=== PATIENT | male | born 1935 | race Caucasian/White ===

== ENCOUNTER 2019-01-11 09:10 | Day surgery (SDC) | payer MEDICARE, BC ==
[2019-01-10 11:45] VITALS: BMI 35.5
[2019-01-11] MEDS ORDERED: Dexamethasone 20 MG/5 ML VIAL ONE (10:23)
[2019-01-11] MEDS ORDERED: PROPOFOL 200 MG/20 ML VIAL ONE (10:23)
[2019-01-11] MEDS ORDERED: Succinylcholine Chloride 20 MG/ML 10 ml SYRINGE FS ONE (10:23)
[2019-01-11] MEDS ORDERED: Ondansetron PF 4 MG/2 ML Vial ONE (10:23)
[2019-01-11 10:29] LABS: #Eosinphils 0.4 thou/uL (0.0-0.7); #Lymphocytes 2.4 thou/uL (1.20-3.40); #Monocytes 0.7 thou/uL (0.11-0.59); #Neutrophils 2.1 thou/uL (1.40-6.50); %Basophils 0.8 % (0.0-1.0); %Eosinophils 7.6 % (0.0-10.0); %Lymphocytes 42.6 % (21.0-51.0); %Monocytes 12.2 % (0.0-10.0); %Neutrophils 36.7 % (42.0-75.0); Hemoglobin 12.8 g/dL (14.0-18.0); Mean Corpuscular HGB CONC 33.6 g/dL (32.0-36.0); Mean Corpuscular Hemoglobin 32.6 pg (27.0-31.0); Mean Corpuscular Volume 96.9 fL (78.0-98.0); Mean Platelet Volume 6.4 fL (7.4-10.4); Platelet Count 285 thou/uL (130-400); RBC Distribution Width 12.8 % (11.5-14.5); Red Blood Cell (RBC) Count 3.94 mill/uL (4.70-6.10); White Blood Cell (WBC) Count 5.7 thou/uL (4.8-10.8)
[2019-01-11 10:53] LABS: Anion Gap 12 mmol/L (10-20); BUN (Urea Nitrogen) 19 mg/dL (8.4-25.7); Calc. Creatinine Clearance 76 mL/min (70-130); Calcium 9.2 mg/dL (7.8-10.44); Carbon Dioxide 25 mmol/L (23-31); Chloride 104 mmol/L (98-107); Estimated GFR-MDRD 70; Glucose 86 mg/dL (83-110); Potassium 3.9 mmol/L (3.5-5.1); Sodium 137 mmol/L (136-145)
[2019-01-11] MEDS ORDERED: EPINEPHrine 1 MG/ML AMP ONE (11:00)
[2019-01-11] MEDS ORDERED: Fentanyl 100 MCG/2 ML VIAL ONE (11:03)
--- NOTE | 2019-01-11 11:05 | CT ---
CT NECK SOFT TISSUES WITH CONTRAST: DATE: 01/11/2019. HISTORY: An 83-year-old male with: K14.8, tongue lesion. M54.2, neck pain. H92.09, ear pain. COMPARISON: None. FINDINGS: There is a moderately enhancing soft tissue density mass centered in the left posterior inferior root of tongue. It envelopes and encompasses the entire left side of base of tongue (lingual tonsil), cr osses the midline raphe to the right a distance of approximately 0.5 to 0.8 cm, and envelopes the po sterior aspects of the left geniohyoid and genioglossus muscles. There are several pathologic, necrotic left level II lymph nodes, both retrojugular and antejugular. The largest is a multiseptated cystic retrojugular level II lymph node that measures approximately 2 x 1.5 x 2 cm. No involvement of level III or lower level lymph nodes identified. Parapharyngeal, submandibular, parotid, retropharyngeal, and institutional nutrition consultant spaces, are unremarkable. Th e base of tongue component of the tumor encroaches upon the left side of the vallecula. Otherwise, n o abnormality of the rest of the larynx identified. Incidental finding of several bilateral thyroid nodules. Multilevel severe degenerative disk disease. 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 IMPRESSION: 1. 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 Uncertain wheth er the origin of the tumor is from lingual tonsil (base of tongue) or root of tongue, but it involves both structures. 2. Malignant, necrotic left level II cervical lymphadenopathy. 3. Based on imaging, the TNM stage is at least T2, N2b, (presumably M0 until further imaging of the rest of the body with PET scan), which would make this at least stage IV-A. 4. Severe cervical spondylosis. CODE T
[2019-01-11] MEDS ORDERED: PROPOFOL 20 ML ONE (11:07)
[2019-01-11] MEDS ORDERED: Lidocaine 4% Topical Sol 50 ML BOT ONE (11:13)
[2019-01-11] MEDS ORDERED: Iopamidol 370 76% 100 ML VIAL ONE (14:18)
--- NOTE | 2019-01-12 13:44 | OP ---
DATE OF PROCEDURE: 01/11/2019 PREOPERATIVE DIAGNOSES: 1. Left base of tongue lesion. 2. Left jugulodigastric lymph node. POSTOPERATIVE DIAGNOSES: 1. Left base of tongue lesion. 2. Left jugulodigastric lymph node. PROCEDURES PERFORMED: Direct laryngoscopy with left base of tongue biopsy and fine-needle aspiration of left neck mass. PROCEDURE IN DETAIL: After consent was obtained, the patient was identified and brought to the operating room and placed on the operating table in the supine position. The CT scan, which had been done prior to the procedure revealed a left base of tongue lesion as well as 2 distinct lymph nodes in the left jugulodigastric region under the sternocleidomastoid. The patient was positioned for laryngoscopy. An operating laryngoscope was placed and the oral cavity was found to be normal and the tonsils were normal. The base of tongue had some firmness on the left side. The larynx was normal. Hypopharynx was good . We obtained biopsy of the left base of tongue region with an up-biting endoscopic forceps with using a 45-degree scope. We then prepped the neck and did a fine-needle aspiration of the neck mass with multiple passes, not in multiple locations. This was sent for histologic evaluation. The patient was then awakened, extubated, and taken to recovery room in stable condition prior to discharge home. Job ID: [id number]
--- NOTE | 2019-01-13 13:46 | EKG ---
Test Reason : PREOP Blood Pressure : / mmHG Vent. Rate : 057 BPM Atrial Rate : 057 BPM P-R Int : 184 ms QRS Dur : 100 ms QT Int : 448 ms P-R-T Axes : 053 022 013 degrees QTc Int : 436 ms Sinus bradycardia Otherwise normal ECG No previous ECGs available Confirmed by DR. Vianney AHUMADA ([id number]) on 01/13/2019 1:46:20 PM Referred By: SHARMAINE Confirmed By:DR. Vianney AHUMADA
== END 2019-01-11 13:55 | disposition home or self-care (01) ==
LOC: SDC 09:10
PROVIDERS: ATTEND Specialist
PROC: 0J953ZX Drainage of Left Neck Subcutaneous Tissue and Fascia, Percutaneous Approach, Diagnostic (ICD-10-PCS; principal; 2019-01-11)
PROC: 0CBS8ZX Excision of Larynx, Via Natural or Artificial Opening Endoscopic, Diagnostic (ICD-10-PCS; 2019-01-11)
DX: C01 Malignant neoplasm of base of tongue (principal); C77.0 Secondary and unspecified malignant neoplasm of lymph nodes of head, face and neck; M47.812 Spondylosis without myelopathy or radiculopathy, cervical region; F17.200 Nicotine dependence, unspecified, uncomplicated; H92.02 Otalgia, left ear; M19.90 Unspecified osteoarthritis, unspecified site; J30.9 Allergic rhinitis, unspecified; E78.00 Pure hypercholesterolemia, unspecified; M10.9 Gout, unspecified; I10 Essential (primary) hypertension; Z79.1 Long term (current) use of non-steroidal anti-inflammatories (NSAID); Z79.01 Long term (current) use of anticoagulants; Z79.82 Long term (current) use of aspirin; Z79.83 Long term (current) use of bisphosphonates; Z79.899 Other long term (current) drug therapy; Z91.040 Latex allergy status
CPT/HCPCS: 36415; 70491; 80048; 82565; 85025; 88173; 88305; 88341; 88342; 93005; 93010; J0171; J1100; J2405; J2704; J3010; Q9967